=== PATIENT | female | born 1990 | race African-American/Black ===

== ENCOUNTER → 2017-03-15 | Outpatient (CLI) | payer OTHER ==
[~2017-03-15] MED LIST: ONETAB13 PO; ROBISYP6; VITA100064 PO
[2017-03-15 09:57] LABS: AUTOMATED NEUTROPHIL # 5.1 TH/MM3 (1.8-7.7); BASOPHIL # 0.1 TH/MM3 (0-0.2); BASOPHIL % 0.7 % (0.0-2.0); EOSINOPHIL # 0.1 TH/MM3 (0-0.4); HEMATOCRIT 42.1 % (35.0-46.0); HEMO FLAGS DIFF FINAL; LYMPH % 23.2 % (9.0-44.0); LYMPHOCYTE # 1.7 TH/MM3 (1.0-4.8); MEAN CELL VOLUME 83.3 FL (80.0-100.0); MEAN CORPUSCULAR HEMOGLOBIN 27.7 PG (27.0-34.0); MEAN CORPUSCULAR HGB CONC 33.2 % (32.0-36.0); NEUT % 67.1 % (16.0-70.0); PLATELET COUNT 341 TH/MM3 (150-450); RED BLOOD COUNT 5.05 MIL/MM3 (4.00-5.30); RED CELL DISTRIBUTION WIDTH 12.9 % (11.6-17.2); WHITE BLOOD COUNT 7.5 TH/MM3 (4.0-11.0)
[2017-03-15 10:05] LABS: BLOOD, URINE NEG (NEG); GLUCOSE,URINE NEG (NEG); KETONE, URINE NEG (NEG); MUCUS URINE FEW /lpf (OCC); NITRITE,URINE NEG (NEG); PH, URINE 6.5 (5.0-8.5); SQUAMOUS EPITHELIAL CELL URINE 2 /hpf (0-5); URINE COLOR YELLOW (YELLW/STRAW)
[2017-03-15 10:24] LABS: ANION GAP 7 MEQ/L (5-15); BICARBONATE 28.4 MEQ/L (21.0-32.0); BLOOD UREA NITROGEN 15 MG/DL (7-18); CHLORIDE 105 MEQ/L (98-107); GLOMERULAR FILTRATION RATE 76 ML/MIN (>89); GLUCOSE,FASTING 90 MG/DL (74-99); POTASSIUM 4.1 MEQ/L (3.5-5.1); SODIUM (NA) 140 MEQ/L (136-145)
[2017-03-15 10:28] LABS: BHCG SCREEN QUALITATIVE LESS THAN 1 MIU/ML (0-5)
== END ==
LOC: CPRE 09:19
PROVIDERS: ATTEND Obstetrics & Gynecology
DX: N87.9 Dysplasia of cervix uteri, unspecified (principal); Z01.812 Encounter for preprocedural laboratory examination
CPT/HCPCS: 36415; 80048; 81001; 84703; 85025

== ENCOUNTER → 2017-03-21 | Day surgery (SDC) | payer OTHER ==
[~2017-03-21] VITALS: Ht 161.3 cm; Wt 107.4 kg
[~2017-03-21] MED LIST changes: +ACETAMINOPHEN 1000 MG/100 ML VIAL IV ONE; +BUPIVACAINE/EPINEPHRINE 0.5% PF 30 ML VIAL ONE; +CHLORHEXIDINE GLUCONATE 2 % 1 PACK (2 CLOTHS) TOPICAL PRN; +DO NOT ADM ANY ANTICOAGULANT DRUGS PRN; +FAMOTIDINE 20 MG/2 ML VIAL ONE; +FERRIC SUBSULFATE 8 ML TOP SOLN ONE; +HYDROmorphone HCL PF 2 MG/ML VIAL ONE; +IBUPROFEN 600 MG TAB PO PRN; +INSULIN HUMAN REGULAR 1,000 UNITS/10 ML VIAL SQ PRN; +IODINE (STRONG-LUGOLS) SOLN 20 DROP/1 ML BTL ONE; +KETOROLAC TROMETHAMINE 60 MG/2 ML (IM) VIAL IM ONE; +KETOROLAC TROMETHAMINE 60 MG/2 ML (IM) VIAL IM PRN; +LACTATED RINGER'S 1000 ML INJ 1,000 ML IV ONE; +LACTATED RINGER'S 1000 ML INJ 1,000 ML IV SCH; +LACTATED RINGER'S 1000 ML IV PRN; +METOPROLOL TARTRATE 25 MG TAB PO PRN; +MIDAZOLAM HCL 2 MG/2 ML VIAL ONE; +ONDANSETRON HCL 4 MG/2 ML VIAL IV PUSH ONE; +ONDANSETRON HCL 4 MG/2 ML VIAL IV PUSH PRN; +ONDANSETRON HCL 4 MG/2 ML VIAL IVP PRN; +POVIDONE IODINE 5% (ANTISEPSIS KIT) 4 APPLICATIONS EACH NARE PRN; +PROPOFOL 200 MG/20 ML AMP IV ONE; -ROBISYP6; +SODIUM CHLORID 0.9% 500 ML IV PRN; +SODIUM CHLORIDE 0.9% FLUSH 10 ML FLUSH IV FLUSH PRN; +SODIUM CHLORIDE 0.9% FLUSH 10 ML FLUSH IV FLUSH SCH; +ceFAZolin 2 GM PREMIX 50 ML IV SCH; +diphenhydrAMINE HCL 25 MG CAP PO PRN; +oxyCODONE/ACETAMINOPHEN 5 MG/325 MG TAB PO PRN
[2017-03-21 06:30] VITALS: BP 145/82; PULSE 80; RESP 20; TEMP 98.6; O2SAT 99
[2017-03-21 10:25] VITALS: BP 123/76; PULSE 67; RESP 16; TEMP 97.7; O2SAT 100
--- NOTE | 2017-03-21 18:40 | MP ---
cc: MELODY TEJADA DATE OF SURGERY 03/21/17 PREOPERATIVE DIAGNOSIS MULU II-III severe cervical dysplasia POSTOPERATIVE DIAGNOSIS MULU II-III severe cervical dysplasia PROCEDURE Examination under anesthesia, cold knife cone biopsy, endocervical curettage. SURGEON Dr. Gissell Tejada DIRECTOR [employer] Staff ANESTHESIA General anesthesia via LMA. FLUIDS 500 mL crystalloid ESTIMATED BLOOD LOSS Minimal URINE OUTPUT Adequate on straight cath prior to procedure. FINDINGS Uterus was approximately 6-8 weeks in size with no adnexal masses palpable. PROCEDURE IN DETAIL The patient was taken to the operating room where general anesthesia was found to be adequate. She was then prepped and draped in the normal sterile fashion in the dorsolithotomy position. The urinary bladder was emptied of urine using sterile technique. A weighted speculum was placed in the vagina. A single-tooth tenaculum applied to the anterior lip of the cervix. Lugol's solution was applied. A paracervical block was performed with Marcaine and epinephrine 1/2%. The cone biopsy was then performed with the [place] blade and a suture was placed at 12 o'clock and endocervical curettage was performed. The cone bed was cauterized with the ball cautery. Prior to the cone biopsy being performed, stay sutures were placed at 3 and 9 o'clock. Running sutures were placed on the anterior and posterior cervical lip with 0 Vicryl. Monsel's was placed in the cone biopsy bed as well as a piece of Surgicel to prevent heavy bleeding. The sponge, lap, needle and instrument counts were correct. Hemostasis was assured. All of the instruments were removed from the vagina. The patient was awakened from anesthesia and transferred to recovery room in stable condition. Pathology was cone biopsy and endocervical curettage. MD TRACY Jiang/ /8:54 AM /6:36 PM
== END | disposition home or self-care (01) ==
LOC: HSDC 06:00
PROVIDERS: ATTEND Obstetrics & Gynecology
DX: N87.1 Moderate cervical dysplasia (principal)
CPT/HCPCS: 00940; 57520; 86077; 86850; 86870; 86900; 86901; 86920; 86922; 88305; J0131; J0690; J1170; J2250; J7120; 88307; J1885; J2405